=== PATIENT | male | born 1980 | race Caucasian/White ===

== ENCOUNTER 2019-07-30 06:19 | Day surgery (SDC) | payer OTHER ==
[~2019-07-30] VITALS: Ht 193 cm; Wt 86.9 kg
[2019-07-30] VITALS (8 sets, daily range): BP systolic 106–135; BP diastolic 66–96
[~2019-07-30 06:19] MED LIST: CHOL50004 PO; FERR-39 PO; MULT-1002 PO; cefazolin/dext.iso 2gm/50ml 50 ML IV ONE; famotidine 20mg tablet PO ONE; ringers solution, lacted 1,000 ML IV SCH; vancomycin 1,500 MG in NS 500ml IV soln IV ONE
[2019-07-30] MEDS ORDERED: BUPIVAcaine/PF 2.5 mg/ml (0.25%) 30ml vial ONE (08:11)
[2019-07-30] MEDS ORDERED: ceFAZolin 1000mg inj ONE (08:11)
[2019-07-30] MEDS ORDERED: sevoflurane 250ml liquid IH ONE (10:42)
[2019-07-30] MEDS ORDERED: fentaNYL/PF 50MCG/1 ML 2ML syringe ONE ×2 (10:43→11:23)
[2019-07-30] MEDS ORDERED: MIDAZolam 5mg/5ml vial ONE (10:43)
[2019-07-30] MEDS ORDERED: ROPIVAcaine 0.5% (5mg/ml) 30ml vial ONE (10:46)
[2019-07-30] MEDS ORDERED: propofol inj 20 ML IV ONE (10:46)
[2019-07-30] MEDS ORDERED: dexamethasone sod phosphate 4mg/ml inj. ONE (11:08)
[2019-07-30] MEDS ORDERED: Thrombin (Bovine) 5,000 unit vial TP ONE (11:24)
[2019-07-30] MEDS ORDERED: gelatin sponge, absorbable (Gelfoam-100 compressed) sponge TP ONE (11:34)
[2019-07-30] MEDS ORDERED: vancomycin 1,000mg inj ONE (13:18)
[2019-07-30] MEDS ORDERED: ringers solution, lacted 1,000 ML IV SCH (13:29)
[2019-07-30] MEDS ORDERED: morphine 2 MG/ML inj. syringe IV PRN (13:30)
[2019-07-30] MEDS ORDERED: meperidine/PF 25mg/ml syringe IV PRN ×3 (13:30)
[2019-07-30] MEDS ORDERED: proCHLORperazine 10 MG/2 ml inj IV PRN (13:30)
[2019-07-30] MEDS ORDERED: ondansetron/PF 4mg/2ml inj IV PRN (13:30)
[2019-07-30] MEDS ORDERED: morphine 4 MG/ML inj SYRINge IV PRN (13:30)
--- NOTE | 2019-07-30 13:45 | NUR ---
Received from OR via BED, accompanied by Anesthesiologist DR MACIAS and report given by Anesthesiolgist. PATIENT A&OX4, DENIES PAIN, V/S WNL, NEUROVASCULAR CHECKS INTACT, SCD ON, RUE DRESSING CDI WITH ICE BAG APPLIED AND SLING . 20G LUE. Addendum: 07/30/19 at 1353 by Enio Ortez RN WRONG TIME
--- NOTE | 2019-07-30 13:50 | NUR ---
Received from OR via BED, accompanied by Anesthesiologist DR MACIAS and report given by Anesthesiolgist. PATIENT A&OX4, DENIES PAIN, V/S WNL, NEUROVASCULAR CHECKS INTACT, SCD ON, RUE DRESSING CDI WITH ICE BAG APPLIED AND SLING . 20G LUE.
--- NOTE | 2019-07-30 14:50 | NUR ---
PATIENT A&OX4, DENIES PAIN, V/S WNL, NEUROVASCULAR CHECKS INTACT, SCD OFF, RUE DRESSING CDI WITH ICE BAG APPLIED AND SLING . 20G ABRIL D/C. I HAVE REVIEWED D/C INSTRUCTIONS WITH PATIENT AND GUARDS AND THEY HAVE VERBALIZED UNDERSTANDING. PATIENT D/C TO GROUP HOME WITH ALL BELONGINGS AND GUARDS GAVE TRANSPORT.
== END 2019-07-30 14:50 ==
LOC: PAS 06:19 → EEVIPCON 10:15 → PAS 14:50
PROVIDERS: ATTEND Orthopaedic Surgery
DX: T84.298A Other mechanical complication of internal fixation device of other bones, initial encounter (principal); S42.001K Fracture of unspecified part of right clavicle, subsequent encounter for fracture with nonunion; X58.XXXD Exposure to other specified factors, subsequent encounter; G89.18 Other acute postprocedural pain; F17.290 Nicotine dependence, other tobacco product, uncomplicated; Z86.19 Personal history of other infectious and parasitic diseases; Z98.890 Other specified postprocedural states; Y83.8 Other surgical procedures as the cause of abnormal reaction of the patient, or of later complication, without mention of misadventure at the time of the procedure; Y92.89 Other specified places as the place of occurrence of the external cause; Z79.899 Other long term (current) drug therapy
CPT/HCPCS: 20680; 23515; 64415; 73000; 82948; C1713; J0690; J1100; J2250; J2704; J3010; J3370; J3490; J7040; A4215; A4565; A4618; A7000; J2795; J7120